=== PATIENT | male | born 1965 | race Caucasian/White ===

== ENCOUNTER 2023-01-11 07:03 | Day surgery (SDC) | payer BC ==
[2023-01-01 11:09] LABS: BASOPHILS # (AUTO) 0.1 X10'3 (0-0.2); BASOPHILS % (AUTO) 0.6 % (0-1); EOSINOPHILS # (AUTO) 0.1 X10'3 (0-0.9); EOSINOPHILS % (AUTO) 1.6 % (0-6); LYMPHOCYTES % (AUTO) 23.7 % (21-51); MEAN CORPUSCULAR HEMOGLOBIN 32.6 PG (27.0-31.0); MEAN CORPUSCULAR HGB CONC 34.3 g/dL (33.0-36.5); MONOCYTES # (AUTO) 0.9 X10'3 (0-0.9); MONOCYTES % (AUTO) 10.7 % (2-12); NEUTROPHILS # (AUTO) 5.4 X10'3 (1.8-7.7); NEUTROPHILS % (AUTO) 63.4 % (42-75); PRE OP HEMATOCRIT 46.1 % (42.0-52.0); PRE OP HEMOGLOBIN 15.8 g/dL (14.0-17.9); PRE OP PLATELET COUNT 240 X10'3 (140-440); RED BLOOD COUNT 4.85 X10'6 (4.70-6.10); RED CELL DISTRIBUTION WIDTH 13.3 % (11.5-14.5)
[2023-01-01 11:13] LABS: ALBUMIN/GLOBULIN RATIO 1.3 (1.1-1.5); ALKALINE PHOSPHATASE 85 IU/L (46-116); BLOOD UREA NITROGEN 22 MG/DL (7-18); BUN/CREATININE RATIO 21.2 (10.0-20.0); CALCIUM 9.3 MG/DL (8.5-10.1); CHLORIDE 106 MMOL/L (99-107); CREATININE 1.04 MG/DL (0.60-1.10); PRE OP ANION GAP 4 (8-16); PRE OP AST 47 U/L (10-37); PRE OP BILIRUB, TOTAL 0.6 MG/DL (0.0-1.0); PRE OP GLUCOSE 106 MG/DL (70-104); PRE OP POTASSIUM 4.3 MMOL/L (3.4-5.1); PRE OP SODIUM 140 MMOL/L (135-145); TOTAL CARBON DIOXIDE 29.6 MMOL/L (24-32); eGFR 74 ML/MIN
[2023-01-01 11:23] LABS: PRE OP ALT 93 U/L (30-65)
[~2023-01-11] VITALS: Ht 185.4 cm; Wt 96.1 kg
[~2023-01-11 07:03] MED LIST: ASPI81TA52 PO; BUPIVAcaine/PF 2.5 mg/ml (0.25%) 30ml vial ONE; CARV3.122 PO; DOCUMENT DATE & TIME OF BETA-BLOCKER PO ONE; EZET10TA48 PO; LIDOcaine 0.5% (5mg/ml) 50ml vial ONE; LISI10TA27 PO; ROSU40TA22 PO; cefazolin 2gm/D5W 100mL 100 ML IV ONE; famotidine 20mg tablet PO ONE; ringers solution, lacted 1,000 ML IV SCH
[2023-01-11 07:40] VITALS: BP 146/92
[2023-01-11] MEDS ORDERED: BUPIVAcaine/PF 2.5 mg/ml (0.25%) 30ml vial ONE (08:21)
[2023-01-11] MEDS ORDERED: midazolam 1 mg/ML 2ml injection ONE ×2 (08:52)
[2023-01-11] MEDS ORDERED: fentaNYL/PF 50MCG/1 ML 2ML syringe ONE (08:52)
[2023-01-11] MEDS ORDERED: morphine 4 MG/ML inj SYRINge IV PRN (09:15)
[2023-01-11] MEDS ORDERED: ringers solution, lacted 1,000 ML IV SCH (09:15)
[2023-01-11] MEDS ORDERED: proCHLORperazine 10 MG/2 ml inj IV PRN (09:15)
[2023-01-11] MEDS ORDERED: morphine 2 MG/ML inj. syringe IV PRN (09:15)
[2023-01-11] MEDS ORDERED: meperidine/PF 25mg/ml syringe IV PRN ×3 (09:15)
[2023-01-11] MEDS ORDERED: ondansetron/PF 4mg/2ml inj IV PRN (09:15)
[2023-01-11] MEDS ORDERED: propofol inj 20 ML IV ONE (09:19)
[2023-01-11 09:38] VITALS: BP 132/99
--- NOTE | 2023-01-11 09:38 | NUR ---
Received from OR via [facility] , accompanied by Anesthesiologist and report given by Anesthesiolgist. PATIENT WITH 20G PIV IN LEFT HAND RUNNING LR AT 100. DENIES PAIN AT THIS TIME. + CSM ON RIGHT HAND AND + CAP REFILL, DENIES PAIN. Addendum: 01/11/23 at 0952 by Kike Nicole RN, RN Amended: Links added.
[2023-01-11 09:50] VITALS: BP 141/104
[2023-01-11 10:00] VITALS: BP 140/109
[2023-01-11 10:10] VITALS: BP 151/107
--- NOTE | 2023-01-11 10:18 | NUR ---
ABLE TO SAFELY AMBULATE AND TRANSFER SELF. IV TAKEN OUT WITHOUT ANY COMPLICATIONS. ALL DISCHARGE INSTRUCTIONS COVERED WITH PATIENT AND ALL QUESTIONS ANSWERED. PATIENT TAKEN OUT VIA WHEELCHAIR TO PERSONAL VEHICLE WHERE FAMILY/FRIEND DROVE PATIENT HOME. Addendum: 01/11/23 at 1030 by Kike Nicole RN, RN Amended: Links added.
== END 2023-01-11 10:38 | disposition home or self-care (01) ==
LOC: PAS 07:03
PROVIDERS: ATTEND Orthopaedic Surgery Hand Surgery
DX: M72.0 Palmar fascial fibromatosis [Dupuytren] (principal); Z79.899 Other long term (current) drug therapy; Z79.82 Long term (current) use of aspirin; Z88.8 Allergy status to other drugs, medicaments and biological substances; Z72.89 Other problems related to lifestyle; Z98.890 Other specified postprocedural states
CPT/HCPCS: 26123; 26125; 36415; 80053; 82948; 85025; A6222; J0690; J2250; J2704; J3010; J3490; J7030; J7120; Z7506; Z7512; A4215; A4618; A6449; A7000